=== PATIENT | female | born 1935 | race Caucasian/White ===

== ENCOUNTER → 2020-05-29 | Outpatient (REF) | payer MEDICARE ==
[~2020-05-29] MED LIST: ACET65TA OR; ACET65TA PO; CALC600T60 PO; CALCTAB22 PO; DULC5TAB PO; LOVE1INJ SC; MULT1TAB8 PO; MULTIVIT PO; PERC5TAB12 PO; PROT1TAB2 PO; TYLE325T5 PO; TYLENOL PM PO; VITA500C24 PO; VITA500T PO; VITA500T17 PO; VITAMIN B 12 PO; ZOFR4TAB16 PO
== END ==
LOC: M LAB REF 19:36
PROVIDERS: ATTEND Nurse Practitioner Adult Health
DX: Z79.899 Other long term (current) drug therapy (principal)

== ENCOUNTER → 2021-01-08 | Outpatient (CLI) | payer SELFPAY | LOC: M LABSMTC 11:52 | PROVIDERS: ATTEND Pediatrics | DX: Z11.52 Encounter for screening for COVID-19 (principal) ==

== ENCOUNTER → 2021-01-30 | Outpatient (REF) | payer MEDICARE | LOC: M LAB REF 16:00 | PROVIDERS: ATTEND Nurse Practitioner Adult Health | DX: Z79.899 Other long term (current) drug therapy (principal); R35.0 Frequency of micturition ==

== ENCOUNTER → 2021-02-12 | Outpatient (CLI) | payer MEDICARE ==
--- NOTE | 2021-02-12 14:03 | DEXAMM ---
INDICATION: OSTEOPOROSIS. COMPARISON: Comparison prior DEXA studies are from January 26, 2018 and May 05, 2002.. TECHNIQUE: Bone density was measured using dual-energy x-ray absorptionmetry (DEXA). FINDINGS: AP SPINE L1-L4 BMD 1.091 g/cm2 Young Adult T-Score -0.8 Age Matched Z-Score 1.1. LT FEMUR, TOTAL BMD 0.683 g/cm2 Young Adult T-Score -2.6 Age Matched Z-Score -0.2. LT NECK BMD 0.752 g/cm2 Young Adult T-Score -2.1 Age Matched Z-Score 0.4. RT FEMUR, TOTAL BMD 0.714 g/cm2 Young Adult T-Score -2.3 Age Matched Z-Score 0.0. RT NECK BMD 0.779 g/cm2 Young Adult T-Score -1.9 Age Matched Z-Score 0.6. IMPRESSION: There is normal bone density of the spine. There is osteoporosis of the left hip. There is low bone density of the right hip. The density of the spine has increased 13.2% since the initial exam on May 05, 2002. The density of the spine increased 0.5% since most recent exam on January 26, 2018. The density of the left hip has decreased 9.5% since initial exam on May 05, 2002. The density of the left hip has decreased 4.6% since most recent exam on January 26, 2018. The density of the right hip has decreased 7.9% since the initial exam on April 30, 2010. The density of the right hip has decreased 4.2% since the most recent exam on January 26, 2018. FOLLOW-UP: Recommendation for the next bone density exam: 2 years. <Electronically signed by Gamaliel Gonzalez > 02/12/21 1400
== END ==
LOC: M WHC 10:22
PROVIDERS: ATTEND Nurse Practitioner Adult Health
DX: M81.0 Age-related osteoporosis without current pathological fracture (principal)

== ENCOUNTER → 2021-08-02 | Outpatient (REF) | payer MEDICARE | LOC: M LAB REF 10:56 | PROVIDERS: ATTEND Nurse Practitioner Adult Health | DX: Z79.899 Other long term (current) drug therapy (principal) ==

== ENCOUNTER → 2021-09-13 | Outpatient (REF) | payer MEDICARE | LOC: M LAB REF 12:19 | PROVIDERS: ATTEND Nurse Practitioner Adult Health | DX: R32 Unspecified urinary incontinence (principal) ==

== ENCOUNTER → 2022-07-25 | Outpatient (REF) | payer MEDICARE | LOC: M LAB REF 16:28 | PROVIDERS: ATTEND Nurse Practitioner Adult Health | DX: M81.0 Age-related osteoporosis without current pathological fracture (principal) ==

== ENCOUNTER → 2023-01-21 | Outpatient (REF) | payer MEDICARE | LOC: M LAB REF 12:29 | PROVIDERS: ATTEND Nurse Practitioner Adult Health | DX: Z79.899 Other long term (current) drug therapy (principal) ==

== ENCOUNTER → 2023-07-29 | Outpatient (REF) | payer MEDICARE | LOC: M LAB REF 16:36 | PROVIDERS: ATTEND Nurse Practitioner Family | DX: Z79.899 Other long term (current) drug therapy (principal) ==

== ENCOUNTER → 2023-11-26 | Outpatient (REF) | payer MEDICARE | LOC: M LAB REF 16:18 | PROVIDERS: ATTEND Nurse Practitioner Family | DX: N39.0 Urinary tract infection, site not specified (principal); B96.20 Unspecified Escherichia coli [E. coli] as the cause of diseases classified elsewhere ==

== ENCOUNTER 2023-12-07 14:10 | Inpatient (IN) | payer MEDICARE ==
[~2023-12-07] VITALS: Ht 162.6 cm; Wt 44.0 kg
[2023-12-07 18:04] LABS: BASO # 0.1 10^3/uL (0.0-0.2); BASO % 0.4 % (0.0-1.0); EOS # 0.1 10^3/uL (0.0-0.5); EOS % 0.7 % (0.0-3.0); HEMATOCRIT 35.4 % (36.0-47.0); HEMOGLOBIN 11.1 g/dl (12.0-15.5); LYMPH # 1.2 10^3/uL (1.5-5.0); LYMPH % 6.7 % (24.0-44.0); MEAN CORPUSCULAR HEMOGLOBIN 28.8 pg (27.0-33.0); MEAN CORPUSCULAR HGB CONC 31.4 g/dl (32.0-36.5); MEAN CORPUSCULAR VOLUME 91.7 fl (80.0-96.0); MONO # 0.8 10^3/uL (0.0-0.8); MONO % 4.6 % (2.0-8.0); NEUTROPHILS # 15.4 10^3/uL (1.5-8.5); NEUTROPHILS % 87.2 % (36.0-66.0); PLATELET COUNT, AUTOMATED 187 10^3/uL (150-450); RED BLOOD COUNT 3.86 10^6/uL (4.00-5.40); WHITE BLOOD COUNT 17.7 10^3/uL (4.0-10.0)
[2023-12-07 18:13] LABS: ETHYL ALCOHOL (ETHANOL) 0.006 % (0.000-0.010)
[2023-12-07 18:15] LABS: ALBUMIN 3.1 G/DL (3.2-5.2); ALKALINE PHOSPHATASE 94 U/L (46-116); ALT/SGPT < 9 U/L (7.0-40); AST/SGOT 20 U/L (<34); BILIRUBIN,DIRECT 0.1 MG/DL (<0.4); BILIRUBIN,TOTAL 0.4 MG/DL (0.3-1.2); BLOOD UREA NITROGEN 39 MG/DL (9-23); CALCIUM LEVEL 8.8 MG/DL (8.3-10.6); CARBON DIOXIDE LEVEL 30 MMOL/L (20-31); CHLORIDE LEVEL 106 MMOL/L (98-107); CREATININE FOR GFR 1.21 MG/DL (0.55-1.30); GLOMERULAR FILTRATION RATE 44.6 (>32); GLUCOSE, FASTING 134 MG/DL (74-106); POTASSIUM SERUM 4.1 MMOL/L (3.5-5.1); SODIUM LEVEL 141 MMOL/L (136-145); TOTAL PROTEIN 6.4 G/DL (5.7-8.2)
[2023-12-07 18:17] LABS: THYROID STIMULATING HORMONE 0.667 uIU/ML (0.55-4.78)
[2023-12-07] MEDS ORDERED: ISOVUE-370 76% 100ML VIAL As Ordered ONE (18:18)
[2023-12-07 19:03] LABS: RSV AMPLIFICATION NEGATIVE (NEGATIVE)
[2023-12-07] MEDS ORDERED: D3 H400T PO (21:04)
[2023-12-07] MEDS ORDERED: ACET1TAB55 PO (21:04)
[2023-12-07] MEDS ORDERED: MELA1LIQ2 PO (21:04)
[2023-12-07] MEDS ORDERED: FLUT12HF2 INH (21:04)
[2023-12-07] MEDS ORDERED: ALBU8.5H INH (21:04)
[2023-12-07] MEDS ORDERED: QUET1TAB17 PO (21:04)
[2023-12-07] MEDS ORDERED: MIRT-10 PO (21:04)
[2023-12-07] MEDS ORDERED: MONT10TA97 PO (21:04)
[2023-12-07] MEDS ORDERED: HOME MED LIST COMPLETE! XX SCH (21:05)
[2023-12-07] MEDS ORDERED: ACETAMINOPHEN TAB 650MG DOSE (2X325MG) PO PRN (21:40)
[2023-12-07] MEDS ORDERED: MOM 30ML SUSPENSION UDC PO PRN (21:40)
[2023-12-07] MEDS ORDERED: MAALOX 30 ML SUSP *UDC PO PRN (21:40)
[2023-12-07] MEDS ORDERED: ALBUTEROL SULFATE 2.5MG/0.5ML INH NEB SOLN NEB PRN (21:40)
[2023-12-07 23:29] LABS: VENOUS BASE EXCESS 1.9 (-2.0-2.0); VENOUS HCO3 27.3 MMOL/L (23.0-27.0); VENOUS O2 SATURATION 67.3 % (60.0-80.0); VENOUS PARTIAL PRESSURE CO2 46.1 mmHg (38.0-50.0); VENOUS PARTIAL PRESSURE O2 34.5 mmHg (30.0-50.0); VENOUS PH 7.391 UNITS (7.330-7.430); VENOUS STANDARD HCO3 25.6 MMOL/L; VENOUS TOTAL CO2 28.8 MMOL/L (24.0-28.0)
[2023-12-07 23:46] LABS: INR 1.02; PARTIAL THROMBOPLASTIN TIME 32.4 SECONDS (24.8-34.2); PROTHROMBIN TIME 13.1 SECONDS (12.5-14.5)
[2023-12-08 00:07] LABS: MAGNESIUM LEVEL 2.1 MG/DL (1.8-2.4)
[2023-12-08] MEDS: methylPREDNISolone 125MG 2ML VIAL IV SCH (00:10)
[2023-12-08] MEDS: LR 1,000 ML IV SCH (00:10)
[2023-12-08] MEDS: LevoFLOXacin IV 750 MG in IV 1 EA IV SCH (00:11)
[2023-12-08 00:16] LABS: PROCALCITONIN 1.46 ng/ml
[2023-12-08 00:35] VITALS: BP 137/74; TEMP 98.1; O2SAT 91
[2023-12-08] MEDS: IPRATROPIUM 0.5MG/ALBUTEROL 2.5MG INH SOL UD 3ML (DUONEB) NEB SCH (01:46)
[2023-12-08] MEDS: MIRTAZAPINE 15 MG TAB PO SCH (03:27)
[2023-12-08] MEDS: MONTELUKAST 10 MG TAB PO SCH (03:27)
[2023-12-08 06:00] VITALS: BP 135/74; TEMP 97.9; O2SAT 90
[2023-12-08 06:45] LABS: HEMATOCRIT 33.8 % (36.0-47.0); HEMOGLOBIN 10.8 g/dl (12.0-15.5); MEAN CORPUSCULAR HEMOGLOBIN 28.8 pg (27.0-33.0); MEAN CORPUSCULAR VOLUME 90.1 fl (80.0-96.0); PLATELET COUNT, AUTOMATED 171 10^3/uL (150-450); RED BLOOD COUNT 3.75 10^6/uL (4.00-5.40); WHITE BLOOD COUNT 9.9 10^3/uL (4.0-10.0)
[2023-12-08 07:19] LABS: ALBUMIN 2.6 G/DL (3.2-5.2); ALKALINE PHOSPHATASE 88 U/L (46-116); ALT/SGPT 10 U/L (7.0-40); AST/SGOT < 8 U/L (<34); BILIRUBIN,TOTAL 0.4 MG/DL (0.3-1.2); BLOOD UREA NITROGEN 41 MG/DL (9-23); CALCIUM LEVEL 8.2 MG/DL (8.3-10.6); CARBON DIOXIDE LEVEL 27 MMOL/L (20-31); CHLORIDE LEVEL 105 MMOL/L (98-107); CREATININE FOR GFR 1.05 MG/DL (0.55-1.30); GLOMERULAR FILTRATION RATE 52.5 (>32); GLUCOSE, FASTING 124 MG/DL (74-106); MAGNESIUM LEVEL 1.9 MG/DL (1.8-2.4); POTASSIUM SERUM 4.1 MMOL/L (3.5-5.1); SODIUM LEVEL 140 MMOL/L (136-145); TOTAL PROTEIN 5.8 G/DL (5.7-8.2)
[2023-12-08] MEDS: ADVAIR HFA 115/21MCG INHALER INH SCH (07:33)
[2023-12-08] MEDS: PANTOPRAZOLE 40MG TAB (PROTONIX) PO SCH (09:00)
[2023-12-08] MEDS: ENOXAPARIN 30MG/0.3ML SYRINGE (J1650 PER 10MG) SC SCH (09:01)
[2023-12-08] MEDS: DOCUSATE SODIUM 100MG CAPSULE PO SCH (09:01)
[2023-12-08 14:00] VITALS: BP 145/81; TEMP 97.7; O2SAT 90
[2023-12-08 20:18] VITALS: BP 128/61; TEMP 97.9; O2SAT 92
[2023-12-09 02:58] VITALS: O2SAT 83
[2023-12-09 02:59] VITALS: O2SAT 95
[2023-12-09 05:26] VITALS: BP 133/75; TEMP 97.2; O2SAT 98
[2023-12-09] MEDS: LevoFLOXacin 750 MG TABLET PO SCH (06:12)
[2023-12-09 10:56] LABS: HEMATOCRIT 33.1 % (36.0-47.0); HEMOGLOBIN 10.5 g/dl (12.0-15.5); MEAN CORPUSCULAR HEMOGLOBIN 29.2 pg (27.0-33.0); MEAN CORPUSCULAR HGB CONC 31.7 g/dl (32.0-36.5); MEAN CORPUSCULAR VOLUME 92.2 fl (80.0-96.0); PLATELET COUNT, AUTOMATED 198 10^3/uL (150-450); RED BLOOD COUNT 3.59 10^6/uL (4.00-5.40); WHITE BLOOD COUNT 12.7 10^3/uL (4.0-10.0)
[2023-12-09 11:29] LABS: CALCIUM LEVEL 8.3 MG/DL (8.3-10.6); CREATININE FOR GFR 1.12 MG/DL (0.55-1.30); GLOMERULAR FILTRATION RATE 48.8 (>32); POTASSIUM SERUM 3.3 MMOL/L (3.5-5.1)
[2023-12-09] MEDS ORDERED: PRED10TA2 PO (12:20)
[2023-12-09] MEDS ORDERED: LEVO1TAB40 PO (12:20)
[2023-12-09 12:35] LABS: MAGNESIUM LEVEL 1.9 MG/DL (1.8-2.4)
[2023-12-09] MEDS: POTASSIUM CHLORIDE 10MEQ SR TABLET PO ONE (12:40)
[2023-12-09 14:00] VITALS: BP 130/64; TEMP 97.5; O2SAT 96
[2023-12-09 14:32] VITALS: O2SAT 95
== END 2023-12-09 16:00 | disposition home health service (06) | DRG 191 ==
LOC: M ED 14:10 → EDBD 14:10 → M ED INP 21:40 → ENRESERV 22:57 → M MSPAV 12-08 00:35
PROVIDERS: ADMIT Family Medicine; ATTEND Internal Medicine
DX: J44.1 Chronic obstructive pulmonary disease with (acute) exacerbation (principal); Z68.1 Body mass index [BMI] 19.9 or less, adult; G30.9 Alzheimer's disease, unspecified; F02.80 Dementia in other diseases classified elsewhere, unspecified severity, without behavioral disturbance, psychotic disturbance, mood disturbance, and anxiety; R53.81 Other malaise; M81.0 Age-related osteoporosis without current pathological fracture; R29.6 Repeated falls; R63.6 Underweight; R91.8 Other nonspecific abnormal finding of lung field; Z66 Do not resuscitate; Z79.899 Other long term (current) drug therapy; Z88.0 Allergy status to penicillin; Z88.2 Allergy status to sulfonamides; Z88.6 Allergy status to analgesic agent; Z86.73 Personal history of transient ischemic attack (TIA), and cerebral infarction without residual deficits; Z87.891 Personal history of nicotine dependence; Z98.41 Cataract extraction status, right eye; Z98.42 Cataract extraction status, left eye; Z90.49 Acquired absence of other specified parts of digestive tract; Z90.2 Acquired absence of lung [part of]

== ENCOUNTER → 2024-06-09 | Outpatient (REF) | payer MEDICARE, MEDICAID ==
[~2024-06-09] MED LIST changes: +ACET1TAB55 PO; +ALBU8.5H INH; +D3 H400T PO; +FLUT12HF2 INH; +LEVO1TAB40 PO; +MELA1LIQ2 PO; +MIRT-10 PO; +MONT10TA97 PO; +PRED10TA2 PO; +QUET1TAB17 PO
[2024-06-09 10:06] LABS: HEMATOCRIT 32.8 % (36.0-47.0); HEMOGLOBIN 10.2 g/dl (12.0-15.5); MEAN CORPUSCULAR HEMOGLOBIN 30.7 pg (27.0-33.0); MEAN CORPUSCULAR HGB CONC 31.1 g/dl (32.0-36.5); MEAN CORPUSCULAR VOLUME 98.8 fl (80.0-96.0); PLATELET COUNT, AUTOMATED 184 10^3/uL (150-450); RED BLOOD COUNT 3.32 10^6/uL (4.00-5.40)
[2024-06-09 10:36] LABS: ALBUMIN 3.3 G/DL (3.2-5.2); BILIRUBIN,TOTAL 0.4 MG/DL (0.3-1.2); CALCIUM LEVEL 9.6 MG/DL (8.3-10.6); CREATININE FOR GFR 0.95 MG/DL (0.55-1.30); POTASSIUM SERUM 4.4 MMOL/L (3.5-5.1); TOTAL PROTEIN 6.4 G/DL (5.7-8.2)
[2024-06-09 10:37] LABS: TOTAL 25(OH) VITAMIN D 23.1 NG/ML (20.0-100.0)
== END ==
LOC: SKLAB8 06:37
PROVIDERS: ATTEND Internal Medicine
DX: F03.90 Unspecified dementia, unspecified severity, without behavioral disturbance, psychotic disturbance, mood disturbance, and anxiety (principal); E55.9 Vitamin D deficiency, unspecified